=== PATIENT | female | born 1995 | race Caucasian/White ===

== ENCOUNTER 2021-05-17 12:21 | Emergency (ER) | payer MEDICAID ==
[~2021-05-17] VITALS: Ht 160 cm; Wt 118.2 kg
--- NOTE | 2021-05-17 12:28 | NUR ---
pt brought in by [facility] from [facility] urgent care with C/O ABD/RLQ pain that raidates to the right lower back. pt states pain has subsided to 11/25. pt changed into hospital gown and connected to monitor.
--- NOTE | 2021-05-17 13:08 | NUR ---
lab at bedside
[2021-05-17] MEDS ORDERED: KETOROLAC 30 MG/1 ML ONE (13:09)
--- NOTE | 2021-05-17 13:19 | NUR ---
medicated per eMAR. Updated on POC. pt agreeable
[2021-05-17 13:20] LABS: MEAN CORPUSCULAR HEMOGLOBIN 28.1 pg (27.0-34.8); MEAN CORPUSCULAR HGB CONC 33.8 g/dL (32.4-35.8); MEAN PLATELET VOLUME 8.1 fL (7.4-10.4); PLATELET COUNT 375 x10^3/uL (130-400); RED BLOOD COUNT 5.06 x10^6/uL (3.82-5.3); RED CELL DISTRIBUTION WIDTH 14.4 % (9.6-15.2)
[2021-05-17] MEDS ORDERED: SODIUM CHLORIDE FLUSH 10ML SYR IVF ONE (13:30)
[2021-05-17] MEDS ORDERED: KETOROLAC 30 MG/1 ML IVPush ONE (13:30)
[2021-05-17 13:31] LABS: ANION GAP 6 mmol/L (5-15); CALCIUM 9.2 mg/dL (8.5-10.1); CHLORIDE 108 mmol/L (98-107); CREATININE 0.76 mg/dL (0.55-1.02)
--- NOTE | 2021-05-17 13:31 | NUR ---
Discussed need for a UA. pt up to bathroom with a steady gait.
[2021-05-17 13:32] LABS: ALBUMIN 3.7 g/dL (3.4-5.0)
[2021-05-17 13:36] LABS: <RBC MORPHOLOGY> NORMAL; LYMPH#(MANUAL) 1.28 x10^3/uL (1-3.4); LYMPHS% (MANUAL) 10 % (22-44); MONOS#(MANUAL) 0.26 x10^3/uL (0.3-2.7); MONOS% (MANUAL) 2 % (2-9); SEG#(MANUAL) 11.26 x10^3/uL (1.8-6.8); SEGS% (MANUAL) 88 % (42-75)
[2021-05-17 13:37] LABS: <PLATELET ESTIMATE> ADEQUATE; <PLT MORPHOLOGY> NORMAL PLT MORPH
--- NOTE | 2021-05-17 13:58 | NUR ---
BREAK RN: PT ABLE TO PROVIDE URINE SPECIMAN. SENT TO LAB. PT UPDATED ON POC. NO ACUTE DISTRESS NOTED. NO NEEDS EXPRESSED AT THIS TIME.
[2021-05-17 14:04] LABS: MICROSCOPIC INDICATED
[2021-05-17 15:03] VITALS: BP 106/65
--- NOTE | 2021-05-17 15:05 | NUR ---
Patient/Caregiver given discharge instructions and they have confirmed that they understand the instructions. Patient ambulatory with steady gait. NAD, all questions answered appropriately, denies additional needs at this time. No personal belongings left in room after discharge.
== END 2021-05-17 15:06 | disposition home or self-care (01) ==
LOC: EDBD 12:21 → ED 14:40
DX: N20.1 Calculus of ureter (principal); R11.2 Nausea with vomiting, unspecified
CPT/HCPCS: 36415; 74176; 80048; 81001; 82040; 84703; 85025; 87086; 96374; 99284; J1885